=== PATIENT | female | born 1980 | race African-American/Black ===

== ENCOUNTER 2016-12-16 15:39 | Emergency (ER) | payer OTHER ==
[~2016-12-16] VITALS: Ht 165.1 cm; Wt 74.8 kg
--- NOTE | ~2016-12-16 | EKG ---
[address] [address] ELECTROCARDIOGRAM REPORT Name: SANDRA COPELAND Room #: [facility] [id number] Admission: 12/16/16 Attend Phys: Discharge: 12/16/16 Date of : 84 Report #: [id number] THIS REPORT FOR: //name// [facility] ED Test Date: 2016-12-16 Test Time: 15:42:26 Pat Name: SANDRA COPELAND Department: Room: Gender: F [employer] Supervisor: Nino ALBA : 1980 Requested By: Fozia Ding Order Number: [id number] MD: Ye Dodson Measurements Intervals [place] Rate: 62 P: 68 UT: 164 QRS: 55 QRSD: 93 T: 75 QT: 411 QTc: 418 Interpretive Statements Sinus rhythm No significant abnormality Compared to ECG 12/09/2005 22:23:53 No significant changes Electronically Signed On 12-17-2016 7:47:47 CDT by Ye Dodson [email or web address] <ELECTRONICALLY SIGNED> By: Ye Dodson MD, [facility] 12/17/16 0747 [id number] 1542 Ye Dodson MD, FACC /EPI
[2016-12-16 16:11] LABS: BASOPHILS 0.2 % (0.0-2.0); EOSINOPHILS 1.6 % (0.0-3.0); HEMATOCRIT 34.1 % (37.0-47.0); HEMOGLOBIN 11.1 gm/dL (12.0-15.0); LYMPHOCYTES 49.6 % (24.0-44.0); MCH 29.6 pg (26.0-34.0); MCHC 32.6 g/dL (28.0-37.0); MCV 90.8 fL (80.0-100.0); PLATELET COUNT 286 thou/uL (150-400); POLYS 40.6 % (36.0-66.0); RBC 3.76 mil/uL (4.20-5.00); RDW 16.1 % (10.5-14.5)
[2016-12-16 16:13] LABS: MANUAL DIFF NO
[2016-12-16 16:18] LABS: CALCIUM 7.9 mg/dL (8.5-10.1); CREATININE 4.5 mg/dL (0.6-1.0); POTASSIUM 4.6 mmol/L (3.5-5.1)
[2016-12-16 16:23] LABS: ALBUMIN 2.5 g/dL (3.4-5.0); TOTAL BILIRUBIN 0.2 mg/dL (<0.1-1.0); TOTAL PROTEIN 6.7 g/dL (6.4-8.2)
[2016-12-16 16:37] LABS: URINE BILIRUBIN NEGATIVE (Negative); URINE BLOOD 1+ (Negative); URINE COLOR YELLOW; URINE GLUCOSE-RANDOM* NEGATIVE (Negative); URINE KETONES NEGATIVE (Negative); URINE NITRITE NEGATIVE (Negative); URINE PROTEIN (DIPSTICK) 2+ (Negative); URINE UROBILINOGEN 0.2 E.U./dl (0.2-1.0)
[2016-12-16 16:45] LABS: SQUAMOUS 4-10 Moderate /LPF (0-3)
[2016-12-16 16:46] LABS: BACTERIA 1-9 Few /HPF (None Seen); CASTS None Seen /LPF (None Seen); CRYSTALS None Seen /LPF (None Seen); URINE RBC None Seen /HPF (0-2); URINE WBC 0-5 Rare /HPF (0-5)
[2016-12-16] MEDS ORDERED: BENADRYL25 MG PO (17:28)
[2016-12-16] MEDS ORDERED: COMPAZINE10 MG PO (17:28)
[2016-12-16] MEDS ORDERED: ULTRAM 50MG TAB50 MG PO (17:32)
[2016-12-16 18:45] VITALS: BP 151/92
== END 2016-12-16 18:45 | disposition home or self-care (01) ==
LOC: ER 15:39
PROVIDERS: Physician Assistant
DX: I12.9 Hypertensive chronic kidney disease with stage 1 through stage 4 chronic kidney disease, or unspecified chronic kidney disease (principal); N18.9 Chronic kidney disease, unspecified; Z88.5 Allergy status to narcotic agent; Z88.6 Allergy status to analgesic agent